=== PATIENT | male | born 1995 | race African-American/Black ===

== ENCOUNTER 2023-07-01 11:32 | Emergency (ER) | payer OTHER ==
[2023-07-01 11:48] VITALS: BP 151/91; PULSE 73; RESP 18; BMI 21.2
[2023-07-01] MEDS ORDERED: DIPHTH,PERTUSS(ACELL),TET 0.5 ML DISP.SYRIN IM ONE (12:28)
== END 2023-07-01 12:51 | disposition home or self-care (01) ==
LOC: JERFT 11:32 → JER 11:32 → JERFT 12:51
PROC: 3E0234Z Introduction of Serum, Toxoid and Vaccine into Muscle, Percutaneous Approach (ICD-10-PCS; principal; 2023-07-01)
DX: S61.214A Laceration without foreign body of right ring finger without damage to nail, initial encounter (principal); M79.644 Pain in right finger(s); R20.2 Paresthesia of skin; W26.8XXA Contact with other sharp object(s), not elsewhere classified, initial encounter; Y93.89 Activity, other specified; Y92.9 Unspecified place or not applicable
CPT/HCPCS: 90471; 90715; 99283-25